=== PATIENT | male | born 1975 | race Two or more races ===

== ENCOUNTER 2023-06-19 10:07 | Emergency (ER) | payer MEDICARE ==
[~2023-06-19] VITALS: Ht 175.3 cm; Wt 85.1 kg
[2023-06-19 11:01] VITALS: BP 148/97; PULSE 62; RESP 16; TEMP 98.3; O2SAT 97
[2023-06-19] MEDS ORDERED: CEPH500C PO (11:08)
== END 2023-06-19 11:15 | disposition home or self-care (01) ==
LOC: EDBD 10:07 → ER 10:07
DX: S00.81XA Abrasion of other part of head, initial encounter (principal); V19.40XA Pedal cycle driver injured in collision with unspecified motor vehicles in traffic accident, initial encounter; Y93.I9 Activity, other involving external motion; Y92.89 Other specified places as the place of occurrence of the external cause; Y99.8 Other external cause status